=== PATIENT | male | born 1970 | race Caucasian/White ===

== ENCOUNTER 2016-07-20 10:19 | Emergency (ER) | payer OTHER ==
[2016-07-20 10:42] LABS: EOS # 0.1 (0.0-0.5); EOS % 0.5 % (0.9-2.9); MEAN PLATELET VOLUME 11.4 fl (7.4-10.4)
[2016-07-20 10:45] LABS: ABSOLUTE NEUTROPHIL COUNT 6.5 K/mm3 (1.8-7.7); BASO % 0.2 % (0.2-1.0); HEMATOCRIT 46.2 % (32.0-52.0); HEMOGLOBIN 15.1 gm/l (14.0-18.0); IMM NEUT% 0.3 % (0-1); LYMPH # 2.5 (1.0-4.8); LYMPH % 25.4 % (15-45); MEAN CELL VOLUME 90.6 fl (80.0-94.0); MEAN CORPUSCULAR HEMOGLOBIN 29.6 pg (27.0-31.0); MEAN CORPUSCULAR HGB CONC 32.7 g/dl (33.0-37.0); MONO # 0.7 (0.0-0.8); MONO % 7.3 % (4-12); NEUT % 66.3 % (43-75); PLATELET COUNT 163 K/mm3 (130-400); RED CELL DISTRIBUTION WIDTH 12.6 % (11.5-14.5)
[2016-07-20] MEDS ORDERED: SODIUM CHLORIDE 0.9% 1,000 ML ONE (10:53)
[2016-07-20] MEDS ORDERED: ACETAMINOPHEN 500 MG TABLET ONE (10:53)
[2016-07-20] MEDS ORDERED: ONDANSETRON 4 MG/2ML 2 ML VIAL ONE (10:53)
[2016-07-20] MEDS ORDERED: ASPIRIN CHEWTAB 81 MG TABLET ONE (10:53)
[2016-07-20 11:02] LABS: ALB/GLOB RATIO 1.8 (>1.0); ALBUMIN 4.4 gm/dL (3.5-5.7); CALCIUM 9.6 mg/dL (8.6-10.3); MAGNESIUM 2.1 mg/dL (1.9-2.7)
[2016-07-20 11:05] LABS: TROPONIN I < 0.01 ng/ml (0.0-0.06)
[2016-07-20 11:08] LABS: CKMB ISOENZYME 1.4 ng/ml (0.6-6.3)
--- NOTE | 2016-07-20 11:34 | RAD ---
CHEST 2 VIEWS HISTORY: Chest pain. Frontal and lateral chest radiographs dated 07/20/2016. COMPARISON: None. FINDINGS: FOCAL AIRSPACE OPACITY: No gross airspace consolidation. PLEURAL EFFUSION: None. CARDIOMEDIASTINAL SILHOUETTE: Nonenlarged. Minor aortic arch calcification. PNEUMOTHORAX: None identified. OSSEOUS STRUCTURES: No grossly destructive lesions. IMPRESSION: No acute cardiopulmonary process noted.
== END 2016-07-20 12:11 | disposition home or self-care (01) ==
LOC: ED 10:19
DX: R07.9 Chest pain, unspecified (principal); F17.220 Nicotine dependence, chewing tobacco, uncomplicated; Z79.899 Other long term (current) drug therapy
CPT/HCPCS: 83880; 85025; 82550; 82553; 80053; 83735; 84484; 71020; 99284 ×2; 96374; A9270 ×2; J2405; J7030